=== PATIENT | female | born 1960 | race Caucasian/White ===

== ENCOUNTER → 2016-05-05 | Outpatient (CLI) | payer OTHER ==
[~2016-05-05] MED LIST: BIOTIN1000 MICRO PO; CALCIUM 500 +1 EAC5 PO; FLONASE16 G1 BOTH NARES; HYDROCHLOROTHIA25 MG PO; MULTIVITAMIN1 EAC2 PO; NORCO 5/3251 TABLET PO; PROBIOTIC1 EAC1 PO; ST. JOSEPH ASPI81 MG PO; VITAMIN C500 M1 PO; VITAMIN D32000 UNI1 PO
== END | disposition home or self-care (01) ==
LOC: RAD 14:39
PROC: 0R9M3ZZ Drainage of Left Elbow Joint, Percutaneous Approach (ICD-10-PCS; principal; 2016-05-05)
DX: M86.122 Other acute osteomyelitis, left humerus (principal); M25.512 Pain in left shoulder; T84.7XXA Infection and inflammatory reaction due to other internal orthopedic prosthetic devices, implants and grafts, initial encounter; R22.32 Localized swelling, mass and lump, left upper limb
CPT/HCPCS: 76882; 87070; 87075; 87205; 89051; 89060